=== PATIENT | male | born 1990 | race Caucasian/White ===

== ENCOUNTER 2019-09-28 12:28 | Emergency (ER) | payer OTHER ==
[2019-09-28] MEDS ORDERED: KETOROLAC 30 MG/ML INJ ONE (13:58)
[2019-09-28] MEDS ORDERED: ONDANSETRON 4 MG/2 ML VIAL ONE (13:59)
[2019-09-28 14:04] LABS: Basophils % 0.4 % (0-1.3); Hematocrit 45.2 % (39.6-49.0); Lymphocytes % 9.7 % (15.3-44.8); MPV 7.7 fL (7.6-11.3); RBC Red Blood Cell Count 5.35 M/uL (4.33-5.43)
[2019-09-28 14:21] LABS: Albumin 4.2 g/dL (3.4-5.0); Bilirubin Direct 0.2 mg/dL (0-0.2); Potassium 4.1 mmol/L (3.5-5.1); Protein, Total 7.9 g/dL (6.4-8.2)
--- NOTE | 2019-09-28 14:57 | RAD REPORT ---
EXAM DESCRIPTION: CT - Abdomen Pelvis W Contrast - 09/28/2019 2:35 pm CLINICAL HISTORY: ABD PAIN COMPARISON: None. TECHNIQUE: Biphasic, helical CT imaging of the abdomen and pelvis was performed following 100 ml non -ionic IV contrast. No oral contrast. All CT scans are performed using dose optimization technique as appropriate and may include automated exposure control or mA/KV adjustment according to patient size. FINDINGS: No suspicious findings in the lung bases. The liver, spleen, and pancreas show no suspicious findings. Gallbladder and biliary tree are also wi thout suspicious finding. Symmetric renal function is seen with no hydronephrosis or suspicious renal mass. No pyelonephritis o r acute parenchymal process. No bladder abnormalities. No adrenal abnormalities. No dilated bowel loops or bowel wall thickening. Appendix is normal. No free air, free fluid or infla mmatory stranding. No mass or bulky lymphadenopathy. Fat extends into the origin of the left inguina l canal. No suspicious bony findings. IMPRESSION: Contrast enhanced CT abdomen and pelvis showing no significant or suspicious finding.
--- NOTE | 2019-09-28 16:02 | EDPHYS ---
Physician Documentation [facility] Name: Manfred Gramajo Age: 29 yrs Sex: Male : 1990 Arrival Date: 09/28/2019 Time: 12:29 Bed 20 Private MD: ED Physician Wilmer Gray HPI: 09/28 14:35 This 29 yrs old Male presents to ER via Ambulatory with complaints of kdr Abdominal Pain. 14:35 The patient presents with abdominal pain in the right upper quadrant, right lower kdr quadrant. Onset: The symptoms/episode began/occurred suddenly, at 09:00. The symptoms do not radiate. Associated signs and symptoms: Pertinent positives: nausea, vomiting, and diarrhea, diarrhea, nausea, Pertinent negatives: palpitations, shortness of breath, testicular pain, vomiting blood. The symptoms are described as achy, crampy, steady, vague. Modifying factors: The symptoms are alleviated by prone position, the symptoms are aggravated by coughing, movement, touching the area, walking. Severity of pain: At its worst the pain was moderate severe just prior to arrival, in the emergency department the pain has improved mildly. The patient has not experienced similar symptoms in the past. The patient has not recently seen a physician. Historical: - Allergies: 13:05 No Known Allergies; aa5 - PMHx: 13:05 None; aa5 - PSHx: 13:05 None; aa5 - Immunization history:: Flu vaccine is not up to date. - Social history:: Smoking status: Patient/guardian denies using tobacco. - Ebola Screening: : No symptoms or risks identified at this time. ROS: 14:35 Constitutional: Negative for fever, chills, and weight loss, Eyes: Negative for injury, kdr pain, redness, and discharge, Neck: Negative for injury, pain, and swelling, Cardiovascular: Negative for chest pain, palpitations, and edema, Respiratory: Negative for shortness of breath, cough, wheezing, and pleuritic chest pain, Back: Negative for injury and pain, : Negative for injury, bleeding, discharge, and swelling, MS/Extremity: Negative for injury and deformity, Skin: Negative for injury, rash, and discoloration, Neuro: Negative for headache, weakness, numbness, tingling, and seizure activity. Psych: Negative for depression, anxiety, suicide ideation, homicidal ideation, and hallucinations, Allergy/Immunology: Negative for hives, rash, and allergies, Endocrine: Negative for neck swelling, polydipsia, polyuria, polyphagia, and marked weight changes, Hematologic/Lymphatic: Negative for swollen nodes, abnormal bleeding, and unusual bruising. 14:35 Abdomen/GI: Positive for abdominal pain, nausea, vomiting, and diarrhea, Negative for constipation, abdominal cramps, abdominal distension, black/tarry stool, rectal pain, rectal bleeding, bowel incontinence. Exam: 14:35 Constitutional: This is a well developed, well nourished patient who is awake, alert, kdr and in no acute distress. Head/Face: Normocephalic, atraumatic. Eyes: Pupils equal round and reactive to light, extra-ocular motions intact. Lids and lashes normal. Conjunctiva and sclera are non-icteric and not injected. Cornea within normal limits. Periorbital areas with no swelling, redness, or edema. Neck: Trachea midline, no thyromegaly or masses palpated, and no cervical lymphadenopathy. Supple, full range of motion without nuchal rigidity, or vertebral point tenderness. No Meningismus. Chest/axilla: Normal chest wall appearance and motion. Nontender with no deformity. No lesions are appreciated. Cardiovascular: Regular rate and rhythm with a normal S1 and S2. No gallops, murmurs, or rubs. Normal PMI, no JVD. No pulse deficits. Respiratory: Lungs have equal breath sounds bilaterally, clear to auscultation and percussion. No rales, rhonchi or wheezes noted. No increased work of breathing, no retractions or nasal flaring. Back: No spinal tenderness. No costovertebral tenderness. Full range of motion. Skin: Warm, dry with normal turgor. Normal color with no rashes, no lesions, and no evidence of cellulitis. MS/ Extremity: Pulses equal, no cyanosis. Neurovascular intact. Full, normal range of motion. Neuro: Awake and alert, GCS 15, oriented to person, place, time, and situation. Cranial nerves II-XII grossly intact. Motor strength 5/5 in all extremities. Sensory grossly intact. Cerebellar exam normal. Normal gait. Psych: Awake, alert, with orientation to person, place and time. Behavior, mood, and affect are within normal limits. 14:35 Abdomen/GI: Inspection: abdomen appears normal, Bowel sounds: active, all quadrants, Palpation: soft, mild abdominal tenderness, in the right lower quadrant, mass, is not appreciated, rebound tenderness, is not appreciated, voluntary guarding, is not appreciated, involuntary guarding, is not appreciated. Vital Signs: 13:05 BP 130 / 90; Pulse 82; Resp 16 S; Temp 97.8(TE); Pulse Ox 100% on R/A; Weight 95.25 kg aa5 (R); Height 5 ft. 8 in. (172.72 cm) (R); Pain 6/10; 14:20 BP 146 / 86; Pulse 76; Resp 17 S; Pulse Ox 97% on R/A; ca1 15:10 BP 120 / 81; Pulse 64; Resp 17 S; Pulse Ox 98% on R/A; ca1 15:52 BP 129 / 83; Pulse 71; Resp 17 S; Pulse Ox 100% on R/A; ca1 13:05 Body Mass Index 31.93 (95.25 kg, 172.72 cm) aa5 MDM: 14:35 Data reviewed: vital signs, nurses notes, lab test result(s), radiologic studies. kdr Counseling: I had a detailed discussion with the patient and/or guardian regarding: the historical points, exam findings, and any diagnostic results supporting the discharge/admit diagnosis, lab results, radiology results. 16:01 Patient medically screened. [facility] 09/28 13:27 Order name: Basic Metabolic Panel; Complete Time: 16:00 kdr 09/28 13:27 Order name: CBC with Diff; Complete Time: 16:00 kdr 09/28 13:27 Order name: Creatinine for Radiology; Complete Time: 16:00 kdr 09/28 13:27 Order name: Hepatic Function; Complete Time: 16:00 kdr 12 13:27 Order name: Lipase; Complete Time: 16:00 kdr 09/28 16:03 Order name: Urine Dipstick--Ancillary (enter results) 12 13:27 Order name: IV Saline Lock; Complete Time: 13:59 kdr 12 13:27 Order name: Labs collected and sent; Complete Time: 13:59 kdr 09/28 13:47 Order name: CT Abd/Pelvis - IV Contrast Only; Complete Time: 16:00 kdr Administered Medications: 14:00 Drug: TORadol - Ketorolac 15 mg Route: IVP; Site: right antecubital; ca1 15:51 Follow up: Response: No adverse reaction; Pain is decreased ca1 14:02 Drug: Zofran 4 mg Route: IVP; Site: right antecubital; ca1 15:52 Follow up: Response: No adverse reaction; Nausea is decreased ca1 Disposition: 09/28/19 16:01 Discharged to Home. Impression: Abdominal and pelvic pain. - Condition is Stable. - Discharge Instructions: Abdominal Pain, Adult, [id number]. - Prescriptions for Bentyl 20 mg Oral Tablet - take 1 tablet by ORAL route every 6 hours As needed; 20 tablet. Pepcid 20 mg Oral Tablet - take 1 tablet by ORAL route every 12 hours for 5 days; 10 tablet. Zofran 4 mg Oral Tablet - take 1 tablet by ORAL route every 4-6 hours As needed; 12 tablet. Tramadol 50 mg Oral Tablet - take 1 tablet by ORAL route every 8 hours as needed; 12 tablet. - Medication Reconciliation Form, Thank You Letter, Prescription Opioid Use form. - Follow up: Private Physician; When: 2 - 3 days; Reason: If symptoms return, Further diagnostic work-up, Recheck today's complaints, Continuance of care, Re-evaluation by your physician. - Problem is new. - Symptoms have improved. Signatures: Dispatcher [employer] EDMS Wilmer Gray MD MD kdr Calderon, Audri RN RN aa5 Chayo Kidd RN RN ca1 Corrections: (The following items were deleted from the chart) 16:20 16:01 09/28/2019 16:01 Discharged to Home. Impression: Abdominal and pelvic pain. ca1 Condition is Stable. Forms are Medication Reconciliation Form, Thank You Letter, Antibiotic Education, Prescription Opioid Use. Follow up: Private Physician; When: 2 - 3 days; Reason: If symptoms return, Further diagnostic work-up, Recheck today's complaints, Continuance of care, Re-evaluation by your physician. Problem is new. Symptoms have improved. kdr
--- NOTE | 2019-09-28 16:02 | ER ---
Nurse's Notes [facility] Name: Manfred Gramajo Age: 29 yrs Sex: Male : 1990 Arrival Date: 09/28/2019 Time: 12:29 Bed 20 Private MD: Diagnosis: Abdominal and pelvic pain Presentation: 09/28 13:04 Presenting complaint: Patient states: RUQ and RLQ pain that began 0900. Pt also reports aa5 nausea, denies vomiting. Transition of care: patient was not received from another setting of care. Onset of symptoms was September 28, 2019. Risk Assessment: Do you want to hurt yourself or someone else? Patient reports no desire to harm self or others. Initial Sepsis Screen: Does the patient meet any 2 criteria? No. Patient's initial sepsis screen is negative. Does the patient have a suspected source of infection? No. Patient's initial sepsis screen is negative. Care prior to arrival: None. 13:04 Acuity: WILL 3 aa5 13:04 Method Of Arrival: Ambulatory aa5 Historical: - Allergies: 13:05 No Known Allergies; aa5 - PMHx: 13:05 None; aa5 - PSHx: 13:05 None; aa5 - Immunization history:: Flu vaccine is not up to date. - Social history:: Smoking status: Patient/guardian denies using tobacco. - Ebola Screening: : No symptoms or risks identified at this time. Screenin:15 Abuse screen: Denies threats or abuse. Denies injuries from another. Nutritional ca1 screening: No deficits noted. Tuberculosis screening: No symptoms or risk factors identified. Fall Risk IV access (20 points). Assessment: 13:15 General: Appears in no apparent distress. comfortable, Behavior is calm, cooperative, ca1 appropriate for age. Pain: Complains of pain in right upper quadrant and right lower quadrant Pain radiates to back Pain currently is 5 out of 10 on a pain scale. Quality of pain is described as crampy, Pain began 0900 today Is continuous. Neuro: Level of Consciousness is awake, alert, obeys commands, Oriented to person, place, time, situation, Appropriate for age. Cardiovascular: Heart tones S1 S2 present Capillary refill < 3 seconds Patient's skin is warm and dry. Respiratory: Airway is patent Respiratory effort is even, unlabored, Respiratory pattern is regular, symmetrical, Breath sounds are clear bilaterally. GI: Abdomen is round non-distended, Bowel sounds present X 4 quads. Abd is soft X 4 quads Abdomen is tender to palpation X 4 quads. Reports nausea. : No deficits noted. No signs and/or symptoms were reported regarding the genitourinary system. EENT: No deficits noted. No signs and/or symptoms were reported regarding the EENT system. Derm: Skin is intact, is healthy with good turgor, Skin is pink, warm \T\ dry. Musculoskeletal: Circulation, motion, and sensation intact. Capillary refill < 3 seconds, Range of motion: intact in all extremities. 14:20 Reassessment: Patient appears in no apparent distress at this time. Patient and/or ca1 family updated on plan of care and expected duration. Pain level reassessed. Patient is alert, oriented x 3, equal unlabored respirations, skin warm/dry/pink. 15:10 Reassessment: Patient appears in no apparent distress at this time. Patient is alert, ca1 oriented x 3, equal unlabored respirations, skin warm/dry/pink. 15:52 Reassessment: Patient appears in no apparent distress at this time. Patient is alert, ca1 oriented x 3, equal unlabored respirations, skin warm/dry/pink. 16:19 Reassessment: Patient appears in no apparent distress at this time. ca1 Vital Signs: 13:05 BP 130 / 90; Pulse 82; Resp 16 S; Temp 97.8(TE); Pulse Ox 100% on R/A; Weight 95.25 kg aa5 (R); Height 5 ft. 8 in. (172.72 cm) (R); Pain 6/10; 14:20 BP 146 / 86; Pulse 76; Resp 17 S; Pulse Ox 97% on R/A; ca1 15:10 BP 120 / 81; Pulse 64; Resp 17 S; Pulse Ox 98% on R/A; ca1 15:52 BP 129 / 83; Pulse 71; Resp 17 S; Pulse Ox 100% on R/A; ca1 13:05 Body Mass Index 31.93 (95.25 kg, 172.72 cm) aa5 ED Course: 12:29 Patient arrived in ED. mr 13:04 Arm band placed on. aa5 13:05 Triage completed. aa5 13:08 Chayo Kidd, RN is Primary Nurse. ca1 13:15 Patient has correct armband on for positive identification. Placed in gown. Bed in low ca1 position. Call light in reach. Side rails up X 1. Pulse ox on. NIBP on. Warm blanket given. 13:15 No provider procedures requiring assistance completed. ca1 13:26 Wilmer Gray MD is Attending Physician. kdr 13:59 Initial lab(s) drawn, by me, sent to lab. Inserted saline lock: 20 gauge in right em1 antecubital area, using aseptic technique. Blood collected. 14:35 CT Abd/Pelvis - IV Contrast Only In Process Unspecified. EDMS 16:19 IV discontinued, intact, bleeding controlled, No redness/swelling at site. Pressure ca1 dressing applied. Administered Medications: 14:00 Drug: TORadol - Ketorolac 15 mg Route: IVP; Site: right antecubital; ca1 15:51 Follow up: Response: No adverse reaction; Pain is decreased ca1 14:02 Drug: Zofran 4 mg Route: IVP; Site: right antecubital; ca1 15:52 Follow up: Response: No adverse reaction; Nausea is decreased ca1 Outcome: 16:01 Discharge ordered by . kdr 16:19 Discharged to home ambulatory. ca1 16:19 Condition: stable 16:19 Discharge instructions given to patient, Instructed on discharge instructions, follow up and referral plans. medication usage, Demonstrated understanding of instructions, follow-up care, medications, Prescriptions given X 4. 16:20 Patient left the ED. ca1 Signatures: Dispatcher [employer] EDMS Wilmer Gray MD MD [facility], Katerin Shi, Sai em1 Tere Pugh RN RN aa5 Chayo Kidd RN RN ca1 Corrections: (The following items were deleted from the chart) 13:07 13:05 Pulse 82bpm; Resp 16bpm; Spontaneous; Pulse Ox 100% RA; Temp 97.8F Temporal; aa5 95.25 kg Reported; Height 5 ft. 8 in. Reported; BMI: 31.9; Pain 6/10; aa5
[2019-09-28 16:26] LABS: Urine Blood NEGATIVE (NEG); Urine Glucose NEGATIVE (NEG); Urine Protein NEGATIVE (NEG); Urine Specific Gravity 1.015 (1.005-1.030); Urine pH 8.5 (5.0-7.0)
[2019-09-28 17:51] VITALS: TEMP 97.8
[2019-09-28 17:55] VITALS: BP 129/83; O2SAT 100
== END 2019-09-28 16:20 | disposition home or self-care (01) ==
LOC: ER 12:28
DX: R10.2 Pelvic and perineal pain (principal)
CPT/HCPCS: 85025; 80048; 36415; 80076; 81003; 83690; 74177; 96375; 96374; 99284; Q9967; J2405